=== PATIENT | male | born 1990 | race Caucasian/White ===

== ENCOUNTER 2019-08-29 12:42 | Emergency (ER) | payer SELFPAY ==
--- NOTE | 2019-08-29 13:10 | Event Note ---
ED Screening Note Date of service: 08/29/19 Time: 13:07 ED Screening Note: 29 y/o male comes in for gross hematuria this morning. C/o urgency This initial assessment/diagnostic orders/clinical plan/treatment(s) is/are subject to change based on patients health status, clinical progression and re- assessment by fellow clinical providers in the ED. Further treatment and workup at subsequent clinical providers discretion. Patient/guardian urged not to elope from the ED as their condition may be serious if not clinically assessed and managed. Initial orders include:
[2019-08-29 13:11] VITALS: BP 145/99
[2019-08-29 15:44] LABS: Basophils % (Auto) 0.2 % (0.0-1.8); Eosinophils # (Auto) 0.1 K/mm3 (0.0-0.4); Eosinophils % (Auto) 0.8 % (0.0-4.3); Hematocrit 43.4 % (35.5-45.6); Hemoglobin 14.1 gm/dl (11.8-15.2); Lymphocytes # (Auto) 1.1 K/mm3 (1.2-5.4); Mean Corpuscular HGB Conc 33 % (32-34); Mean Corpuscular Volume 84 fl (84-94); Monocytes # (Auto) 0.7 K/mm3 (0.0-0.8); Monocytes % (Auto) 6.6 % (0.0-7.3); Platelet Count 303 K/mm3 (140-440); Red Blood Count 5.14 M/mm3 (3.65-5.03); Red Cell Distribution Width 13.7 % (13.2-15.2)
[2019-08-29 16:06] LABS: BUN/Creatinine Ratio 30; Blood Urea Nitrogen 15 mg/dL (9-20); Calcium 9.4 mg/dL (8.4-10.2); Hemolysis Index 8
--- NOTE | 2019-08-29 16:34 | Emergency Department Report ---
ED Male HPI - General Chief complaint: Urogenital-Male Stated complaint: URINATING BLOOD Time Seen by Provider: 08/29/19 15:05 Source: patient Mode of arrival: Ambulatory Limitations: No Limitations - History of Present Illness Initial comments: 29-year-old male presents to the emergency room complaining of blood in his urine. Patient states that this started today. Patient denies any trauma to the penis or back. Patient denies any back pain abdominal pain pain with urination but he does admit to urinary urgency. MD Complaint: other (Hematuria) -: This morning Severity scale (0 -10): 0 - Related Data Previous Rx's Medication Instructions Recorded Last Taken Type Ciprofloxacin HCl [Cipro] 500 mg PO Q12H #20 tab 09/02/14 Unknown Rx HYDROcodone/ACETAMINOPHEN [[place] 1 each PO Q6H PRN #16 tablet 09/02/14 Unknown Rx 7.5-325 mg TAB] Sulfamethoxazole/Trimethoprim 1 each PO Q12H #20 tablet 09/02/14 Unknown Rx [Bactrim Ds] Amoxicillin [Amoxicillin TAB] 875 mg PO BID #14 tablet 08/29/19 Unknown Rx Allergies Allergy/AdvReac Type Severity Reaction Status Date / Time No Known Allergies Allergy Verified 09/02/14 15:04 ED Review of Systems ROS: Stated complaint: URINATING BLOOD Other details as noted in HPI Comment: All other systems reviewed and negative ED Past Medical Hx - Past Medical History Previous Medical History?: Yes Hx CVA: No Additional medical history: Spinal cord AVM. Scoliosis - Surgical History Past Surgical History?: Yes Additional Surgical History: SPINAL SURGERY? - Social History Smoking Status: Never Smoker Substance Use Type: None - Medications Home Medications: Home Medications Medication Instructions Recorded Confirmed Last Taken Type Ciprofloxacin HCl [Cipro] 500 mg PO Q12H #20 tab 09/02/14 Unknown Rx HYDROcodone/ACETAMINOPHEN [[place] 1 each PO Q6H PRN #16 tablet 09/02/14 Unknown Rx 7.5-325 mg TAB] Sulfamethoxazole/Trimethoprim 1 each PO Q12H #20 tablet 09/02/14 Unknown Rx [Bactrim Ds] Amoxicillin [Amoxicillin TAB] 875 mg PO BID #14 tablet 08/29/19 Unknown Rx ED Physical Exam - General Limitations: No Limitations General appearance: alert, in no apparent distress - Head Head exam: Present: atraumatic, normocephalic - GI/Abdominal GI/Abdominal exam: Present: soft, normal bowel sounds - Neurological Exam Neurological exam: Present: alert, oriented X3, normal gait - Psychiatric Psychiatric exam: Present: normal affect, normal mood - Skin Skin exam: Present: warm, dry, intact, normal color. Absent: rash ED Course Vital Signs 08/29/19 13:10 Temperature 98 F Pulse Rate 102 H Respiratory 16 Rate Blood Pressure 145/99 [Left] O2 Sat by Pulse 99 Oximetry ED Medical Decision Making - Lab Data Result diagrams: 08/29/19 15:25 08/29/19 15:25 - Medical Decision Making 29-year-old male presents to the emergency room complaining of blood in his urine. Patient states that this started today. Patient denies any trauma to the penis or back. Patient denies any back pain abdominal pain pain with urination but he does admit to urinary urgency. Urinalysis was not able to perform by lab secondary to it had clotted from the blood in the urine. Patient CBC is within normal limits. I will place patient on amoxicillin 500 mg 3 times daily for 7 days and referred him to urology. Critical care attestation.: If time is entered above; I have spent that time in minutes in the direct care of this critically ill patient, excluding procedure time. ED Disposition Clinical Impression: Gross hematuria Disposition: - TO HOME OR SELFCARE Is pt being admited?: No Does the pt Need Aspirin: No Condition: Stable Instructions: Acute Hematuria (ED) Additional Instructions: Complete your antibiotics as prescribed. I highly recommend for you to follow- up with a urologist I have listed their information below for your convenience. Prescriptions: Amoxicillin [Amoxicillin TAB] 875 mg PO BID #14 tablet Referrals: FREDDY RUIZ MD [Primary Care Provider] - 3-5 Days CONNIE HUNT MD [Staff Physician] - 3-5 Days Forms: Work/School Release Form(ED)
== END 2019-08-29 17:10 | disposition home or self-care (01) ==
LOC: ED 12:42
DX: R31.0 Gross hematuria (principal); Z79.899 Other long term (current) drug therapy
CPT/HCPCS: 36415; 80048; 85025; 99283